=== PATIENT | female | born 1965 | race African-American/Black ===

== ENCOUNTER 2020-07-17 10:37 | Outpatient (CLI) | payer MEDICARE, OTHER, SELFPAY ==
--- NOTE | ~2020-07-17 | MR_ITS ---
EXAMINATION: MRA brain wo con EXAM DATE: 07/17/2020 12:02 INDICATION: Severe headache. TECHNIQUE: 3-D [id number] MRA of the intracranial arteries was performed without contrast. Correl ation is made to brain MRI examination 12/08/2010. FINDINGS: There is normal flow related signal seen within the vertebral, basilar and internal carotid arteries. There is no proximal stenosis. There are no aneurysms identified. Both A1 and P1 segments are pat ent. Flow in the cerebral arteries is symmetric. IMPRESSION: Normal MRA brain exam. Reviewed, dictated and finalized at location A. HARGE DOOR OPERATOR IMPRESSION: Normal MRA brain exam.
== END 2020-07-17 10:38 | disposition home or self-care (01) ==
PROVIDERS: Visit Provider Psychiatry & Neurology Neurology
DX: I67.1 Cerebral aneurysm, nonruptured (principal); R51.9 Headache, unspecified
CPT/HCPCS: 70544

== ENCOUNTER 2021-08-18 15:45 | Outpatient (CLI) | payer MEDICARE, OTHER, SELFPAY ==
--- NOTE | ~2021-08-18 | MR_ITS ---
EXAMINATION: MR lumbar spine wo con DATE: 08/18/2021 16:50 INDICATION: Pain in leg, unspecified. Low back pain. TECHNIQUE: Magnetic resonance imaging (MRI) of the lumbar spine was performed without intravenous con trast. Sequences included sagittal T2-weighted FSE, sagittal T2-weighted FS FSE, sagittal T1-weighted FSE, and axial T2-weighted FSE. COMPARISON: Lumbar spine MRI 09/23/2008 FINDINGS: There is 6 degrees levocurvature of lumbar spine. There is 3 mm anterolisthesis of L4 on L5 . Vertebral body heights are normal. There is mildly decreased disc height at L2-L3 and L3-L4, severe ly decreased disc height at L4-L5, and moderately decreased disc height at L5-S1 with endplate remode ling. The distal spinal cord signal intensity is normal. The conus medullaris is at T12-L1. The follo wing disc levels are specifically discussed: L1-L2: The disc is mildly bulging. There is mild bilateral facet joint osteoarthritis. There is mild bilateral neural foraminal stenosis. There is no central canal stenosis. L2-L3: The disc is bulging and has an annular fissure. There is moderate bilateral facet joint osteoa rthritis. There is mild bilateral neural foraminal stenosis. There is mild central canal stenosis. L3-L4: The disc is bulging and has an annular fissure. There is moderate bilateral facet joint osteoa rthritis. There is mild bilateral neural foraminal stenosis. There is mild central canal stenosis. L4-L5: The disc is bulging and has an annular fissure. There is severe bilateral facet joint osteoart hritis. There is moderate bilateral neural foraminal stenosis. There is mild central canal stenosis. L5-S1: The disc is bulging. There is severe bilateral facet joint osteoarthritis. There is mild bilat eral neural foraminal stenosis. There is no central canal stenosis. IMPRESSION: 1. Severe lumbar spondylosis, worsened from 09/23/2008. Reviewed, dictated and finalized at location A. ARD MACHINE OPERATOR
== END 2021-08-18 15:46 | disposition home or self-care (01) ==
LOC: ANHIMG 15:54
PROVIDERS: PCP Psychiatry & Neurology Neurology; Visit Provider Psychiatry & Neurology Neurology
DX: M79.606 Pain in leg, unspecified (principal); M47.816 Spondylosis without myelopathy or radiculopathy, lumbar region
CPT/HCPCS: 72148

== ENCOUNTER 2022-11-10 09:56 | Outpatient (CLI) | payer MEDICARE, OTHER, SELFPAY ==
--- NOTE | 2022-11-10 11:00 | NEURO_ITS ---
Impression: # Complains of numbness of hands. # Bilateral Carpal Tunnel Syndrome, right more than left, sensory more than motor. # No ulnar neuropathy. # Normal needle/EMG exam. Motor Nerve Conduction Upper Extremities Median Nerve Conduction Velocity (m/sec) Terminal Latency (msec) Response Voltage(mV) Elbow-Wrist Wrist Elbow Wrist Right 60 4.6 3 3 Left 60 4.5 2 3 Ulnar Nerve Conduction Velocity (m/sec) Terminal Latency (msec) Response Voltage(mV) Above Elbow Below Elbow Wrist Above Elbow Below Elbow Wrist Right 60 2.7 5 6 Left 60 2.7 8 9 F-Wave Latency Median (ms) Ulnar (ms) Right 29.7 28.8 Left 29.7 28.1 Sensory Nerve Conduction Upper Extremities Median Nerve Stimulation Terminal Latency (msec) Wrist/Digit Response Voltage (uV) Wrist Right 5.0/4.9 58/22 Left 4.7/4.7 29/17 Ulnar Nerve Stimulation Terminal Latency (msec) Wrist/Digit Response Voltage (uV) Wrist Right 3.0 53 Left 2.8 53 Radial Nerve Terminal Latency (msec) Response Voltage(mV) Right 2.9 41 Left 2.2 25 Left Right Muscles Examined Fibrillation Fasciculation Scarcity Voltage Duration Left Right Left Right Left Right Left Right Left Right Deltoid Biceps X X Brachioradialis Triceps X X Pronator Teres X X Ext Indicis X X Ext Digitorum X X Abd Poll Brev X X 1st Dorsal Interosseus Paraspinals MTDD
== END 2022-11-10 09:57 | disposition home or self-care (01) ==
LOC: ANHNEURO 09:57
PROVIDERS: Visit Provider Psychiatry & Neurology Neurology
DX: R20.0 Anesthesia of skin (principal); G56.03 Carpal tunnel syndrome, bilateral upper limbs
CPT/HCPCS: 95886; 95911

== ENCOUNTER 2022-12-14 10:15 | Outpatient (CLI) | payer MEDICARE, OTHER, SELFPAY ==
--- NOTE | ~2022-12-14 | MM_ITS ---
EXAMINATION: MM screening [facility]ington BI w pierce HISTORY: Screening mammogram, family history of breast cancer in her mother and 1 sister. TECHNIQUE: Craniocaudal and mediolateral oblique 3-D tomosynthesis images were obtained and synthetic 2-D images were generated. CAD analysis was submitted and interpreted. COMPARISON: 12/02/2014 BREAST PARENCHYMAL COMPOSITION:There are scattered areas of fibroglandular density. FINDINGS: Stable small, circumscribed, low-density mass is noted at the upper left breast. No suspici ous mass, calcification, or architectural distortion are identified in either breast to suggest malig narciso. There has been no suspicious interval change. IMPRESSION: No mammographic evidence of malignancy. Recommend routine screening mammography in one year. BI-RADS Category 2: Benign finding(s). Reviewed, dictated and finalized at [facility].
== END 2022-12-14 10:16 | disposition home or self-care (01) ==
PROVIDERS: Visit Provider Obstetrics & Gynecology
DX: Z12.31 Encounter for screening mammogram for malignant neoplasm of breast (principal)
CPT/HCPCS: 77063; 77067

== ENCOUNTER → 2023-05-16 09:16 | Outpatient (CLI) | payer MEDICARE, OTHER, SELFPAY ==
--- NOTE | ~2023-05-16 | CT_ITS ---
Non-contrast Head CT History: Headache COMPARISON: 12/30/2013 Technique: Axial non-contrast imaging of the brain was performed. Dose reduction technique was used on this scan by utilizing automated exposure control and iterative reconstruction technique. The dose -length product (DLP) was 599.57 mGy-cm. Findings: There is no evidence of intracranial hemorrhage, mass lesion, or acute infarct. Brain par enchyma appears normal. The ventricles and subarachnoid spaces are normal in size. The calvarium ap pears normal. The visualized paranasal sinuses and mastoid air cells are clear. Impression: No significant abnormality seen. Reviewed, dictated and finalized at location . Impression: No significant abnormality seen.
== END ==
PROVIDERS: PCP Student in an Organized Health Care Education/Training Program; Visit Provider Student in an Organized Health Care Education/Training Program
DX: R51.9 Headache, unspecified (principal)
CPT/HCPCS: 70450

== ENCOUNTER 2024-01-05 16:40 | Outpatient (NON) | payer MEDICARE, OTHER, SELFPAY | END 2024-01-05 16:41 | disposition home or self-care (01) | LOC: HOME HLTH 16:40 | PROVIDERS: PCP Student in an Organized Health Care Education/Training Program; Visit Provider Surgery | DX: N61.1 Abscess of the breast and nipple (principal) | CPT/HCPCS: 87070; 87075; 87076; 87185; 87205 ==

== ENCOUNTER 2024-07-25 11:46 | Outpatient (CLI) | payer MEDICARE, OTHER, SELFPAY ==
--- NOTE | ~2024-07-25 | MM_ITS ---
EXAMINATION: MM screening remington BI w pierce HISTORY: Screening mammogram, family history of breast cancer in her mother and sister. TECHNIQUE: Craniocaudal and mediolateral oblique 3-D tomosynthesis images were obtained and synthetic 2-D images were generated. CAD analysis was submitted and interpreted. COMPARISON: 12/14/2022, 12/02/2014 BREAST PARENCHYMAL COMPOSITION:Not Dense. The breasts are almost entirely fatty FINDINGS: No suspicious mass, calcification, or architectural distortion are identified in either [place] ast to suggest malignancy. There has been no suspicious interval change. IMPRESSION: No mammographic evidence of malignancy. Recommend routine screening mammography in one year. BI-RADS Category 1: Negative Reviewed, dictated and finalized at location . TO DOOR SELLING AGENT
== END 2024-07-25 11:47 | disposition home or self-care (01) ==
LOC: MICIMG 11:47
PROVIDERS: Visit Provider Obstetrics & Gynecology
DX: Z12.31 Encounter for screening mammogram for malignant neoplasm of breast (principal)
CPT/HCPCS: 77063; 77067

== ENCOUNTER 2025-07-10 02:08 | Day surgery (SDC) | payer MEDICARE, OTHER, SELFPAY ==
--- NOTE | 2025-07-04 09:46 | SUR.PREOP ---
[facility] has started construction of its new state of the art ER which will open Spring 2026. With this, we anticipate parking may be a challenge for some our surgical patients and families. Parking spaces are limited but are available for all Surgical, obstetrics, and ER patients sharing this lot. If you arrive and find you are having a hard time finding a parking space, please note that we understand the challenges, please drive around the hospital and park near Hospital Entrance 1. When you enter this entrance, you can ask a volunteer to direct or take you back to the surgical waiting area to check in. We appreciate everyone?s understanding of these expected challenges while we build for your future. Report to the Outpatient Waiting Room, entrance under the green pavilion located off [address], at time _830am__ on date _07/10/25___. Planned Procedure Time: _1030__.? Time changes happen often and if your time is changed the preop area will call you the afternoon before. - You and your visitor will be asked to self-screen and do not enter if you have any COVID symptoms. Please call surgeon if you need to reschedule. - A mask is optional within the hospital at this time. Patients may have clear liquids (water, carbonated beverages, clear teas, apple juice) until 3 hours prior to surgery with a maximum of 20 ounces. - No food from midnight until time of surgery and no smoking, or chewing tobacco (or any form of nicotine). No chewing gum, candy or mints. Take only the following medications with a SIP of water on the morning of surgery: _amlodipine, clonazepam, duloxetine, gabapentin__(if needed Albuterol, cyclobenzaprine). ____ DO NOT STOP ANY OF YOUR OTHER PRESCRIPTION MEDICATIONS PRIOR TO SURGERY EXCEPT THE FOLLOWING Hold all vitamins and supplements for 3 days per anesthesiologist. Medications to discontinue per physician: _Pt is to follow up with Dr. Morales regarding the Meloxicam.___ Date to take last dose of vitamins:_07/06/25__ Please no make-up, nail sao tomean, hairspray, perfume, deodorant, or body powder the day of surgery.? No jewelry (including any body piercings) or valuables the day of surgery, leave them at home.? Please take a shower or bath the night before, or the morning of, surgery with an antibacterial soap.? Wear comfortable, loose fitting clothing.? - Jewelry must be removed prior to entering the operating room.? Rings and piercings that are not removed may be cut off. - The hospital will not accept responsibility for valuables.? - Please leave all valuables, including medications, at home the day of surgery. If you are going home after surgery, a licensed otr flatbed company truck driver must drive you home.? - NO public transportation without another adult if you receive anesthesia. - We recommend that an adult stay with you for 24 hours following discharge. - We also recommend that you do not drive, make important decision, drink alcoholic beverages, or take any drugs that were not prescribed by your health care provider for at least 24 hours after your discharge time. Follow any additional instructions given to you from your surgeon. Telephone instructions given to _Vale_and asked if any additional questions and then verbalized understanding. Patient advised to call surgeon office or pre surgery nurse liaison [phone] if any additional questions.
[2025-07-04 09:58] VITALS: BMI 31.6
[2025-07-10 08:40] VITALS: BP 128/89; PULSE 78; RESP 16; TEMP 36.6; O2SAT 100
--- NOTE | 2025-07-10 08:56 | WPDHPUPDATE1 ---
History and Physical Update Update Date/Time: 07/10/25 08:56 History and Physical has been reviewed, including an updated exam of the patient. There are NO changes in the patient's condition. Risks, benefits, and alternatives have been discussed and questions answered. Patient agrees to proceed with procedure.
[2025-07-10] MEDS: ACETAMINOPHEN 500 MG TABLET 1000 MG PO (09:01)
[2025-07-10] MEDS: LACTATED RINGERS 1,000 ML 30 ML IV CONT (09:10)
--- NOTE | 2025-07-10 09:27 | WPDANESEPPF ---
Anes - Initial Pre Proc Eval Procedure: Operation Date: 07/10/25 10:30 Proposed Procedures p Hysteroscopy, Dilation and Curettage with Removal Any Endometrial Lesions as Needed - Eleno Morales MD Date/Time: 07/10/25 09:27 Surgeon: Eleno Morales MD Pre Op Diagnosis: post menopausal bleeding Patient Data Age: 59 Gender: F Height: 1.75 m Weight: 95 kg Last Vital Signs Temp 97.9 F 07/10/25 08:40 Pulse 78 07/10/25 08:40 Resp 16 07/10/25 08:40 BP 128/89 07/10/25 08:40 Pulse Ox 100 07/10/25 08:40 O2 Del Method Room Air 07/10/25 08:40 Allergies Allergy/AdvReac Type Severity Reaction Status Date / Time Iodinated Contrast Media Allergy Unknown Nausea and Verified 07/10/25 09:14 Vomiting Contrast Media Allergy Mild Nausea and Uncoded 06/25/25 15:27 Vomiting Home Medications ?Medication ?Instructions ?Recorded ?Confirmed ?Type amlodipine 10 mg tablet 10 mg PO DAILY 12/19/20 07/10/25 History clonazepam 0.5 mg tablet 0.5 mg PO QID 12/19/20 07/10/25 History duloxetine 30 mg capsule,delayed 30 mg PO BID 12/19/20 07/10/25 History release (Cymbalta) fluticasone propionate 100 1 inh inhalation Q12H 12/19/20 07/04/25 History mcg/actuation blister powder for inhalation (Flovent Diskus) hydrochlorothiazide 25 mg tablet 25 mg PO DAILY 12/19/20 07/10/25 History lamotrigine 300 mg tablet,extended 300 mg PO DAILY 12/19/20 07/10/25 History release 24 hr metformin 500 mg tablet 500 mg PO BID 12/19/20 07/10/25 History quetiapine 300 mg tablet (Seroquel) 300 mg PO QHS 12/19/20 07/10/25 History atorvastatin 10 mg tablet 10 mg PO DAILY 05/23/24 07/10/25 History potassium gluconate 2.5 mEq tablet 2.5 meq PO DAILY 05/23/24 07/10/25 History pantoprazole 40 mg tablet,delayed 40 mg PO QAM 06/22/24 07/10/25 History release topiramate 50 mg tablet (Topamax) 50 mg PO .COMPLEX #300 tabs 04/10/25 07/10/25 Rx gabapentin 300 mg capsule 300 mg PO DAILY 05/29/25 07/10/25 History meloxicam 15 mg tablet 15 mg PO DAILY 05/29/25 07/04/25 History albuterol sulfate 90 mcg/actuation 2 inh inhalation Q4-6H PRN asthma 07/04/25 07/04/25 History aerosol inhaler cyclobenzaprine 10 mg tablet 10 mg PO DAILY PRN muscle spasm 07/04/25 07/04/25 History dulaglutide 1.5 mg/0.5 mL 3 mg subcut WEEKLY 07/04/25 07/10/25 History subcutaneous pen injector (Trulicity) ergocalciferol (vitamin D2) 1,000 1,000 mcg PO DAILY 07/04/25 07/10/25 History unit capsule Laboratory Tests 07/10/25 09:07 POC Capillary Glucose 104 mg/dl (65-105) Patient hx anesthesia problems: none Family hx anesthesia problems: none Results Review: All pre-operative results and documents have been reviewed as part of the pre-operative evaluation. [facility] Past Medical History Medical History Chronic headache Lumbar spondylosis Acid reflux Diabetes Arthritis Asthma Allergies Hypertension Depression DVT (deep venous thrombosis) Surgical History Surgical History H/O left wrist surgery Hx of appendectomy Family History Family History Mother Hypertension Family history of diabetes mellitus in first degree relative Family history of malignant neoplasm of breast in first degree relative, Onset Age: 201 Patient's mother is Diabetes mellitus Patient's mother is in good health Carcinoma of colon Father Diabetes mellitus Patient's father is in good health Sibling Diabetes mellitus Acute myocardial infarction Family history of throat cancer Other Family history of coronary artery disease Social History Social History Social History: never smoker Smoking status: Never smoker Second hand tobacco smoke exposure: Yes Alcohol intake: current Alcohol use details: special occasions only Substance use: never Substance use type: marijuana Other substance usage details: twice a month the lollipops Do You Feel Safe in your Home?: Yes Lack of Transportation: No Lack of Food: Never True Current Housing: I Have Housing Concerned About Future Housing: No Difficulty Paying Gas/Electric Bills: No Difficulty Paying for Meds: No Currently Unemployed: No Education: High School Diploma/GED Difficulty w/ Childcare or Family Care: No Living arrangements: with family Occupation/Education: retired Gender identity (if verbalized by the patient): Female Spiritual care concerns: No Anes - Eval Final PreProcedure Day of Procedure 07/10/25 09:27 Patient weight: obese Heart: regular rate and rhythm Lungs: clear to auscultation Airway: Mallampati scale class II Neurological: alert and oriented Last oral intake: >/= 8 hours ASA classification: III Emergent: no Anesthetic plan: proceed Anesthesia type and monitoring: general GIVS and standard monitoring Results Review: All pre-operative results and documents have been reviewed as part of the pre-operative evaluation. Informed Consent: The patient's anesthetic plan and its attendant risks and benefits were discussed with the patient/family/POA. Questions were solicited and answers provided to the satisfaction of the patient/family/POA.
--- NOTE | 2025-07-10 09:34 | WPDHPUPDATE1 ---
History and Physical Update Update Date/Time: 07/10/25 09:34 History and Physical has been reviewed, including an updated exam of the patient. There are NO changes in the patient's condition. Risks, benefits, and alternatives have been discussed and questions answered. Patient agrees to proceed with procedure.
[2025-07-10] MEDS: ceFAZolin 2 GM in SODIUM CHLORIDE 0.9% IV 50 ML 100 ML IVPB (09:46)
[2025-07-10] MEDS: LIDOCAINE 1% LOCAL INJ 10 ML VIAL INFILTRATE (09:54)
--- NOTE | 2025-07-10 10:01 | S_PTH ---
PATIENT: Vale Tran LOC: [facility] U#:[id number] AGE/SX: 59/F ROOM: RE07/10/[address]: Eleno Morales MD : 1965 BED: DIS: 07/10/2025 SPEC #: [id number] RECD: 07/10/25 13:23 STATUS: MITZY REQ #: [id number] SHEREE: 07/10/25 10:[address]: Eleno Morales DEPT: [facility] Surgical RECD BY: Nkechi Salgado ENTERED: 07/10/25 13:23 SP TYPE: Surgical OTHR DR: [facility] Tissues: A - Endometrial Curettings Procedures: Hematoxylin and Eosin Stain Gross and Microscopic Level 4 CD 34
[2025-07-10 10:15] VITALS: BP 117/74; PULSE 76; RESP 14
--- NOTE | 2025-07-10 10:29 | W.PM.PROC2 ---
Procedure Note - Detailed Date of Procedure 07/10/25 Pre-op Diagnosis post menopausal bleeding Post-op Diagnosis Other ( endometrial polyp lesion) Procedure Performed hysteroscopy with dilation and curettage 2. Hysteroscopic removal of endometrial lesion Surgeon Eleno Morales MD Anesthesia MAC and Local Indications postmenopausal bleeding persistent benign endometrial biopsy though abnormal pelvic ultrasound Findings endometrial lesion at the lower anterior uterus into the upper cervix, removed completely the rest of the uterine cavity was atrophic Description of Procedure After informed consent was obtained patient was taken to the operating room and adequate IV sedation was administered. Attention was turned to the vagina. Speculum was inserted. Single-tooth tenaculum placed on the anterior lip of the cervix. cervical block obtained with 1% lidocaine. The uterus was sounded to 7 cm. The cervix was dilated to an 4 Mckenna dilator. The hysteroscope was inserted into the cavity using hydrodilation. The findings were consistent with endometrial polyp. Approximately 1.5 cm. The Aveta instrument was then used to remove the lesion completely. The hysteroscope was removed. A curettage was performed.The single-tooth tenaculum was removed hemostasis was noted at the tenaculum site. Sponge count correct. The patient taken to recovery in stable condition. Estimated Blood Loss 5 Packing No Pathology Yes ( Endometrial curettings and shavings) Complications No immediate complications Condition Stable Disposition Same day [facility] Billing Surgery - Charge Forward: Surgery Billing
[2025-07-10 10:45] VITALS: BP 119/87; PULSE 65
[2025-07-10 11:15] VITALS: BP 124/88; PULSE 67
== END 2025-07-10 11:36 | disposition home or self-care (01) ==
PROVIDERS: Visit Provider Obstetrics & Gynecology
PROC: 0U5B8ZZ Destruction of Endometrium, Via Natural or Artificial Opening Endoscopic (ICD-10-PCS; CPT 58563; principal; 2025-07-10 10:30)
DX: R93.89 Abnormal findings on diagnostic imaging of other specified body structures (principal); N85.8 Other specified noninflammatory disorders of uterus; I10 Essential (primary) hypertension; K21.9 Gastro-esophageal reflux disease without esophagitis; E11.9 Type 2 diabetes mellitus without complications; J45.909 Unspecified asthma, uncomplicated; F32.A Depression, unspecified; R51.9 Headache, unspecified; M43.06 Spondylolysis, lumbar region; M19.90 Unspecified osteoarthritis, unspecified site; F12.90 Cannabis use, unspecified, uncomplicated; E66.9 Obesity, unspecified; Z68.30 Body mass index [BMI] 30.0-30.9, adult; Z79.84 Long term (current) use of oral hypoglycemic drugs; Z79.51 Long term (current) use of inhaled steroids; Z98.890 Other specified postprocedural states; Z86.718 Personal history of other venous thrombosis and embolism; Z80.3 Family history of malignant neoplasm of breast; Z80.0 Family history of malignant neoplasm of digestive organs; Z80.1 Family history of malignant neoplasm of trachea, bronchus and lung; Z82.49 Family history of ischemic heart disease and other diseases of the circulatory system
CPT/HCPCS: 58558; 82948; 88305; 88342; J0690; A9270; J2003; J2250; J2704; J3010; J7120